=== PATIENT | male | born 1955 | race Caucasian/White ===

== ENCOUNTER 2018-10-21 21:48 | Inpatient (IN) | payer MEDICAID, OTHER ==
[2018-10-21] MEDS: morphine 4 MG/ML VIAL IV (22:39)
[2018-10-21] MEDS: SOD CHLORIDE 0.9% 500 ML IV (22:40)
[2018-10-21] MEDS: ONDANSETRON 4 MG INJ IV (22:40)
[2018-10-21 22:51] LABS: ADD MAN DIFF? NO
[2018-10-21 22:54] LABS: ABNORMAL IP MESSAGE 1; BASOPHIL # 0.1 10^3/ul (0.0-0.1); BASOPHILS % 0.5 % (0.0-2.0); EOSINOPHILS # 0.5 10^3/ul (0.0-0.5); EOSINOPHILS % 3.6 % (0.0-7.0); HEMATOCRIT 29.9 % (42.0-52.0); HEMOGLOBIN 10.2 g/dl (14.0-18.0); LYMPHOCYTES # 0.4 10^3/ul (0.8-2.9); LYMPHOCYTES % 2.8 % (15.0-51.0); MEAN CORPUSCULAR HEMOGLOBIN 29.5 pg (29.0-33.0); MEAN CORPUSCULAR HGB CONC 34.1 g/dl (32.0-37.0); MEAN CORPUSCULAR VOLUME 86.4 fl (82.0-101.0); MEAN PLATELET VOLUME 9.4 fl (7.4-10.4); MONOCYTE # 1.9 10^3/ul (0.3-0.9); MONOCYTES % 12.8 % (0.0-11.0); NEUTROPHIL # 11.1 10^3/ul (1.6-7.5); NEUTROPHILS % 75.5 % (39.0-77.0); PLATELET COUNT 99 10^3/UL (140-415); POSITIVE DIFF @See below; RED BLOOD COUNT 3.46 10^6/ul (4.70-6.10); RED CELL DISTRIBUTION WIDTH 16.5 % (11.5-14.5)
[2018-10-21 22:54] LABS: WHITE BLOOD COUNT 14.7 10^3/ul (4.8-10.8)
[2018-10-21 23:14] LABS: INR 1.09; PROTIME 14.2 Sec (11.9-14.9); PT RATIO 1.1
[2018-10-21 23:15] LABS: PARTIAL THROMBOPLASTIN TIME 33.2 Sec (23.0-35.0)
[2018-10-21 23:25] LABS: ALANINE AMINOTRANSFERASE 37 IU/L (13-69); ALBUMIN 3.8 g/dl (3.3-4.9); ALBUMIN/GLOBULIN RATIO 1.22; ALKALINE PHOSPHATASE 134 IU/L (42-121); ANION GAP 18 (5-13); ASPARTATE AMINO TRANSFERASE 85 IU/L (15-46); BILIRUBIN,INDIRECT 0.7 mg/dl (0-1.1); BILIRUBIN,TOTAL 0.7 mg/dl (0.2-1.3); BLOOD UREA NITROGEN 70 mg/dl (7-20); CALCIUM 9.1 mg/dl (8.4-10.2); CARBON DIOXIDE 13 mmol/L (21-31); CHLORIDE 95 mmol/L (97-110); CREATININE 1.41 mg/dl (0.61-1.24); Estimated GFR 51 mL/min (>60); GLUCOSE 100 mg/dl (70-220); LIPASE 412 U/L (23-300); POTASSIUM 5.6 mmol/L (3.5-5.1); SODIUM 126 mmol/L (135-144); TOTAL PROTEIN 6.9 g/dl (6.1-8.1)
[2018-10-22 03:20] LABS: ADD UMIC NO; UR ASCORBIC ACID NEGATIVE (NEGATIVE); UR BILIRUBIN (Dip) NEGATIVE (NEGATIVE); UR BLOOD (Dip) NEGATIVE (NEGATIVE); UR CLARITY CLEAR (CLEAR); UR COLOR YELLOW (YELLOW); UR GLUCOSE (Dip) NEGATIVE (NEGATIVE); UR KETONES (Dip) NEGATIVE (NEGATIVE); UR LEUKOCYTE ESTERASE (Dip) NEGATIVE Leu/ul (NEGATIVE); UR NITRITE (Dip) NEGATIVE (NEGATIVE); UR SPECIFIC GRAVITY (Dip) 1.015 (1.003-1.030); UR TOTAL PROTEIN (Dip) NEGATIVE (NEGATIVE); UR UROBILINOGEN (Dip) NEGATIVE (NEGATIVE)
[2018-10-22] MEDS ORDERED: DEXTROSE 5%-0.45% NACL 1,000 ML IV (04:44)
[2018-10-22] MEDS ORDERED: ONDANSETRON 4 MG INJ IV (05:00)
[2018-10-22] MEDS ORDERED: ALBUTEROL/IPRATROPIUM (NEB) 3 ML AMP HHN (05:00)
[2018-10-22] MEDS ORDERED: NACL 0.9% 3 ML SYG IV (05:00)
[2018-10-22 06:10] LABS: ADD MAN DIFF? NO
[2018-10-22 06:16] LABS: WHITE BLOOD COUNT 13.9 10^3/ul (4.8-10.8)
[2018-10-22 06:16] LABS: ABNORMAL IP MESSAGE 1; BASOPHIL # 0.1 10^3/ul (0.0-0.1); BASOPHILS % 0.4 % (0.0-2.0); EOSINOPHILS # 0.6 10^3/ul (0.0-0.5); HEMATOCRIT 27.6 % (42.0-52.0); HEMOGLOBIN 9.5 g/dl (14.0-18.0); LYMPHOCYTES # 0.4 10^3/ul (0.8-2.9); LYMPHOCYTES % 3.2 % (15.0-51.0); MEAN CORPUSCULAR HEMOGLOBIN 29.6 pg (29.0-33.0); MEAN CORPUSCULAR HGB CONC 34.4 g/dl (32.0-37.0); MEAN PLATELET VOLUME 9.7 fl (7.4-10.4); MONOCYTES % 14.2 % (0.0-11.0); NEUTROPHIL # 10.5 10^3/ul (1.6-7.5); NEUTROPHILS % 75.5 % (39.0-77.0); PLATELET COUNT 92 10^3/UL (140-415); POSITIVE DIFF @See below; RED BLOOD COUNT 3.21 10^6/ul (4.70-6.10); RED CELL DISTRIBUTION WIDTH 16.3 % (11.5-14.5)
[2018-10-22] MEDS: DEXTROSE 5%-0.9% NACL 1,000 ML IV ×2 (06:25→17:06)
[2018-10-22] MEDS: morphine 2 MG INJ IV (06:25)
[2018-10-22 07:35] LABS: URIC ACID 11.9 mg/dl (3.1-7.9)
[2018-10-22 07:48] LABS: ALANINE AMINOTRANSFERASE 33 IU/L (13-69); ALBUMIN 3.4 g/dl (3.3-4.9); ALBUMIN/GLOBULIN RATIO 1.13; ALKALINE PHOSPHATASE 115 IU/L (42-121); ANION GAP 13 (5-13); ASPARTATE AMINO TRANSFERASE 78 IU/L (15-46); BILIRUBIN,INDIRECT 0.8 mg/dl (0-1.1); BILIRUBIN,TOTAL 0.8 mg/dl (0.2-1.3); BLOOD UREA NITROGEN 67 mg/dl (7-20); CALCIUM 8.8 mg/dl (8.4-10.2); CARBON DIOXIDE 16 mmol/L (21-31); CHLORIDE 98 mmol/L (97-110); CREATININE 1.31 mg/dl (0.61-1.24); Estimated GFR 55 mL/min (>60); GLUCOSE 97 mg/dl (70-220); MAGNESIUM 1.8 mg/dl (1.7-2.5); POTASSIUM 5.7 mmol/L (3.5-5.1); SODIUM 127 mmol/L (135-144); TOTAL PROTEIN 6.4 g/dl (6.1-8.1)
[2018-10-22 08:19] LABS: OSMOLALITY 276 mOsm/kg (280-295)
[2018-10-22 12:04] LABS: AMMONIA < 9 umol/l (9-30)
[2018-10-22] MEDS: RIFAXIMIN 550 MG TAB PO ×2 (12:34→22:19)
[2018-10-22] MEDS: FUROSEMIDE 20 MG INJ IV (12:36)
[2018-10-22] MEDS: CEFTRIAXONE 1 GM/50 ML (PMX) 50 ML IVPB (12:40)
[2018-10-22] MEDS: HYDROmorphONE 0.5 MG/0.5 ML SYG IV (22:19)
[2018-10-23] MEDS: DEXTROSE 5%-0.9% NACL 1,000 ML IV ×3 (02:31→21:20)
[2018-10-23] MEDS: HYDROmorphONE 0.5 MG/0.5 ML SYG IV ×7 (02:31→23:56)
[2018-10-23 03:19] LABS: ADD UMIC NO; UR ASCORBIC ACID NEGATIVE (NEGATIVE); UR BILIRUBIN (Dip) NEGATIVE (NEGATIVE); UR BLOOD (Dip) NEGATIVE (NEGATIVE); UR CLARITY CLEAR (CLEAR); UR COLOR YELLOW (YELLOW); UR GLUCOSE (Dip) NEGATIVE (NEGATIVE); UR KETONES (Dip) NEGATIVE (NEGATIVE); UR LEUKOCYTE ESTERASE (Dip) NEGATIVE Leu/ul (NEGATIVE); UR NITRITE (Dip) NEGATIVE (NEGATIVE); UR SPECIFIC GRAVITY (Dip) 1.013 (1.003-1.030); UR TOTAL PROTEIN (Dip) NEGATIVE (NEGATIVE); UR UROBILINOGEN (Dip) NEGATIVE (NEGATIVE)
[2018-10-23 03:40] LABS: CREATININE,URINE RANDOM 65.26 mg/dl (20-370)
[2018-10-23 03:47] LABS: POTASSIUM,URINE RANDOM 29.6 mmol/L (25-125)
[2018-10-23 03:49] LABS: SODIUM,URINE RANDOM < 13 mmol/L (30-90)
[2018-10-23 05:42] LABS: OSMOLALITY,URINE 422 mOsm/kg (250-1200)
[2018-10-23 06:05] LABS: ADD MAN DIFF? NO
[2018-10-23 06:07] LABS: ABNORMAL IP MESSAGE 1; BASOPHILS % 0.4 % (0.0-2.0); EOSINOPHILS # 0.6 10^3/ul (0.0-0.5); EOSINOPHILS % 4.9 % (0.0-7.0); HEMATOCRIT 28.8 % (42.0-52.0); HEMOGLOBIN 9.7 g/dl (14.0-18.0); LYMPHOCYTES # 0.6 10^3/ul (0.8-2.9); LYMPHOCYTES % 5.2 % (15.0-51.0); MEAN CORPUSCULAR HEMOGLOBIN 29.5 pg (29.0-33.0); MEAN CORPUSCULAR HGB CONC 33.7 g/dl (32.0-37.0); MEAN CORPUSCULAR VOLUME 87.5 fl (82.0-101.0); MEAN PLATELET VOLUME 9.5 fl (7.4-10.4); MONOCYTE # 1.7 10^3/ul (0.3-0.9); MONOCYTES % 15.2 % (0.0-11.0); NEUTROPHILS % 70.8 % (39.0-77.0); PLATELET COUNT 88 10^3/UL (140-415); POSITIVE DIFF @See below; RED BLOOD COUNT 3.29 10^6/ul (4.70-6.10); RED CELL DISTRIBUTION WIDTH 16.6 % (11.5-14.5)
[2018-10-23 06:07] LABS: WHITE BLOOD COUNT 11.3 10^3/ul (4.8-10.8)
[2018-10-23 06:50] LABS: ANION GAP 12 (5-13); BLOOD UREA NITROGEN 51 mg/dl (7-20); CARBON DIOXIDE 16 mmol/L (21-31); CHLORIDE 100 mmol/L (97-110); CREATININE 1.44 mg/dl (0.61-1.24); Estimated GFR 50 mL/min (>60); GLUCOSE 209 mg/dl (70-220); MAGNESIUM 1.6 mg/dl (1.7-2.5); POTASSIUM 4.9 mmol/L (3.5-5.1); SODIUM 128 mmol/L (135-144)
[2018-10-23] MEDS: MAGNESIUM SULFATE 3 GM in DEXTROSE 5% 100 ML IVPB (10:04)
[2018-10-23] MEDS: RIFAXIMIN 550 MG TAB PO ×2 (10:04→20:34)
[2018-10-23] MEDS: INFLUENZA VIRUS VACCINE 0.5 ML (DISPENSING) IM* (10:06)
[2018-10-23] MEDS ORDERED: MAGNESIUM SULFATE 2 GM/50 ML 50 ML IVPB (10:30)
[2018-10-23] MEDS: morphine 2 MG INJ IV (11:41)
[2018-10-23] MEDS: CEFTRIAXONE 1 GM/50 ML (PMX) 50 ML IVPB (13:06)
[2018-10-24] MEDS: HYDROmorphONE 0.5 MG/0.5 ML SYG IV ×4 (04:04→17:11)
[2018-10-24 05:58] LABS: ADD MAN DIFF? NO
[2018-10-24] MEDS: DEXTROSE 5%-0.9% NACL 1,000 ML IV (06:09)
[2018-10-24 06:22] LABS: ABNORMAL IP MESSAGE 1; BASOPHIL # 0.1 10^3/ul (0.0-0.1); BASOPHILS % 0.6 % (0.0-2.0); EOSINOPHILS # 0.5 10^3/ul (0.0-0.5); EOSINOPHILS % 4.8 % (0.0-7.0); HEMATOCRIT 27.6 % (42.0-52.0); HEMOGLOBIN 9.3 g/dl (14.0-18.0); LYMPHOCYTES # 0.4 10^3/ul (0.8-2.9); LYMPHOCYTES % 3.7 % (15.0-51.0); MEAN CORPUSCULAR HEMOGLOBIN 29.5 pg (29.0-33.0); MEAN CORPUSCULAR HGB CONC 33.7 g/dl (32.0-37.0); MEAN CORPUSCULAR VOLUME 87.6 fl (82.0-101.0); MEAN PLATELET VOLUME 9.5 fl (7.4-10.4); MONOCYTE # 1.5 10^3/ul (0.3-0.9); MONOCYTES % 14.6 % (0.0-11.0); NEUTROPHIL # 7.3 10^3/ul (1.6-7.5); NEUTROPHILS % 73.2 % (39.0-77.0); PLATELET COUNT 81 10^3/UL (140-415); POSITIVE DIFF @See below; RED BLOOD COUNT 3.15 10^6/ul (4.70-6.10); RED CELL DISTRIBUTION WIDTH 16.9 % (11.5-14.5)
[2018-10-24 06:35] LABS: ANION GAP 12 (5-13); BLOOD UREA NITROGEN 43 mg/dl (7-20); CALCIUM 8.1 mg/dl (8.4-10.2); CARBON DIOXIDE 15 mmol/L (21-31); CHLORIDE 101 mmol/L (97-110); CREATININE 1.02 mg/dl (0.61-1.24); Estimated GFR > 60 mL/min (>60); GLUCOSE 117 mg/dl (70-220); MAGNESIUM 2.3 mg/dl (1.7-2.5); PHOSPHORUS 3.8 mg/dl (2.5-4.9); POTASSIUM 5.1 mmol/L (3.5-5.1); SODIUM 128 mmol/L (135-144)
[2018-10-24] MEDS: RIFAXIMIN 550 MG TAB PO (08:53)
[2018-10-24 10:49] LABS: LIPASE 270 U/L (23-300)
[2018-10-24] MEDS: CEFTRIAXONE 1 GM/50 ML (PMX) 50 ML IVPB (10:51)
[2018-10-24] MEDS: morphine 2 MG INJ IV (10:51)
[2018-10-24 14:50] LABS: CREATININE, RANDOM URINE 62 mg/dL (20-320); MICROALBUMIN 0.2 mg/dL; MICROALBUMIN/CREATININE RATIO 3 (<30)
== END 2018-10-24 19:23 | disposition home or self-care (01) | DRG 871 ==
LOC: E/R 21:48 → 6WM 10-22 02:02
DX: A41.9 Sepsis, unspecified organism (principal); K85.90 Acute pancreatitis without necrosis or infection, unspecified; K65.2 Spontaneous bacterial peritonitis; N17.9 Acute kidney failure, unspecified; R18.8 Other ascites; E87.0 Hyperosmolality and hypernatremia; E87.2 Acidosis; C85.90 Non-Hodgkin lymphoma, unspecified, unspecified site; K74.60 Unspecified cirrhosis of liver; E87.5 Hyperkalemia; D73.2 Chronic congestive splenomegaly; D64.9 Anemia, unspecified; C80.1 Malignant (primary) neoplasm, unspecified
CPT/HCPCS: 71045; 74176; 76775; 80048; 80053; 81003; 82043; 82140; 82436; 83690; 83735; 83930; 83935; 84100; 84133; 84155; 84300; 84560; 85025; 85610; 85730; 87070; 87102; 87116; 90686; 93005; 97161; G0378